=== PATIENT | male | born 1985 | race Caucasian/White ===

== ENCOUNTER → 2018-08-04 12:04 | Outpatient (CLI) | payer SELFPAY ==
[2018-08-04 12:14] VITALS: BP 108/67; PULSE 60; RESP 16; TEMP 36.7; O2SAT 97; BMI 29.7
--- NOTE | 2018-08-04 12:47 | HTC.HP3 ---
Problem List (1) Hemophilia B in male Status: Chronic Subjective Date of Service:: 08/04/18 Chief Complaint: F/U for Hemophilia. History of Present Illness: 33y.o.man with Hemophilia B, comes in for follow up. Had Factor replacement for wisdom tooth extraction. Health History: Past Medical History Past Medical History: Bleeding disorder Family History Paternal Past Medical History: Unknown Maternal Past Medical History: Unknown Past Medical History (Last Updated 08/04/18 @ 12:12 by Tatianna Stanton) Hemophilia (Acute) Past Surgical History (Last Reviewed 08/04/18 @ 12:13 by Tatianna Stanton) No history of previous surgery (Acute) Family History (Last Updated 08/04/18 @ 12:13 by Tatianna Stanton) Grandfather Cancer Parkinson disease Grandmother Cancer Brother Hemobilia Allergies/Adverse Reactions: Allergy/AdvReac Type Severity Reaction Status Date / Time aspirin AdvReac Severe BLEEDING Verified 08/04/18 12:14 Risk Factors Social History Smoking Status Former smoker Tobacco Risk Data: Tobacco Risk Smoking Status Former smoker Type of tobacco: Smokeless tobacco usage: Items/Day: Year started: Years used: Counseled to quit/cut down: Reason for no counseling performed: Reason for no pharmacotherapy: Tobacco use comments: Passive smoke exposure: Substance Risk Drug use: No Caffeine use [drinks/day]: Alcohol use: Type of alcohol: Drinks per day: Has patient felt the need to cut down: Has the patient been annoyed by complaints: Has the patient felt guilty about drinking: 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: Comments: Review of Systems Constitutional:: Denies: Fever, Sweats, Weight loss, Appetite change, Chills Cardiovascular:: Denies: Chest pain, Palpitations, Dyspnea on exertion, Orthopnea, PND, Shortness of breath Respiratory: Denies: Cough, Hemoptysis, Shortness of Breath, Wheezing Gastrointestinal:: Denies: Abdominal pain, Nausea, Vomiting, Diarrhea, Constipation, Hematochezia Genitourinary: Denies: Dysuria, Hematuria, 15, Flank pain Musculoskeletal:: Denies: Back pain, Myalgia, Arthralgia Skin: Denies: Rash, Skin Changes, Wounds Neurological:: Denies: Headache, Dizziness, Visual changes, Tinnitus, Hearing loss Psychiatric: Denies: Anxiety, Depression, Homicidal Ideations, Suicidal Ideations Vital Signs Height 5 ft 8 in Weight: 88.541 kg Weight in Pounds 195.2 lbs Pulse Ox 97 Temperature 98.1 F Pulse Rate 60 Respiratory Rate 16 Blood Pressure 108/67 Blood Pressure Position Sitting - Physical Exam General: Alert, Oriented x3, No apparent distress HEENT: Atraumatic, PERRLA, EOMI, Normocephalic Oropharynx:: Dry mucosa Neck:: Supple, Trachea midline. Negative for: JVD, bilateral Cardiac:: Regular rate, Regular rhythm, Normal S1, Normal S2. Negative for: Murmur Lungs: Clear to auscultation, Excusion symmetrical. Negative for: Rhonchi, Wheezes Abdomen:: Bowel sounds x 4, Soft, Non-tender, Non-distended. Negative for: Hepatosplenomegaly Extremities:: Negative for: Cyanosis, Edema Neurological: Neuro grossly intact Skin:: Negative for: Lesions, Rash, Petechiae, Ecchymosis Psychiatric:: Appropriate affect, Euthymic Lymphatics:: Negative for: Cervical lymphadenopathy, Supraclavicular lymphadenopathy, Axillary lymphadenopathy Therapy ROM Screening - Subjective Subjective:: Pt states he is doing well- has left shoulder pain with lifting - states not all the time- states minimal - - Objective Right shoulder flex:: 155 Left shoulder flex:: 160 Right shoulder extension:: 55 Left shoulder extension:: 60 Right elbox flex/ext:: 140/0 Left elbox flex/ext:: 140/0 Right elbow circumference:: 29cm Left elbow circumference:: 29cm Right forearm sup/pron:: 55 Left forearm sup/pron:: 60 Right knee flexion:: 115 Left knee flexion:: 120 Right knee circumference:: 34cm Left knee circumference:: 34cm Right ankle dorsiflexion:: 20 Left ankle dorsiflexion:: 20 Right ankle Plan-flex:: 45 Left ankle Plan-flex:: 45 Right ankle circumference:: NT boots on Left ankle circumference:: NT boots on Right hip flexion:: 90 Left hip flexion:: 90 Right hip extension:: 20 Left hip extension:: 20 - Assessment Assessment:: Therapist gave pt info on ice for left shoulder- pt tested negative for RT inj- but question a tendonitis. Assessment and Plan Hemophilia B, clinically stable. Plan is to continue expectant management with factor replacement as needed. RTC 1 yr. Primary Care Provider: Cuauhtemoc Burns DO Referring Provider:
== END ==
PROVIDERS: Family Provider Family Medicine; PCP Family Medicine; Visit Provider Internal Medicine Medical Oncology
DX: D67 Hereditary factor IX deficiency (principal)

== ENCOUNTER 2021-03-25 10:31 | Day surgery (SDC) | payer SELFPAY, OTHER ==
[2021-03-25 11:22] VITALS: BP 111/78; PULSE 63; RESP 16; TEMP 36.6; O2SAT 98; BMI 30.8
[2021-03-25] MEDS: Lactated Ringers 1,000 ML 15 ML IV (11:27)
[2021-03-25] MEDS: Cefazolin 2 GM in 0.9% Normal Saline 100 ML IV (13:32)
[2021-03-25] MEDS: Bupivacaine Mpf 0.5% 30 ML VIAL (13:49)
--- NOTE | 2021-03-25 14:20 | PCM.HP.STD ---
HPI - General HPI Narrative TED HORAN, is a 36 M who presents for a circumcision, he has hemophilia and is giving himself factors per his hematologis instructions. PFSH Medical History (Updated 03/25/21 @ 14:[address] Adin Welch MD) Former smoker Gastric reflux Hemophilia History of irregular heartbeat Hx of blood diseases Home Medications omega-3 fatty acids [Fish Oil] 1,000 mg PO DAILY 03/17/21 [History Last Taken Unknown] coagulation factor IX (recomb) [BeneFIX] IV 03/25/21 [History Last Taken Unknown] oxycodone-acetaminophen 1 tab PO Q6H PRN 7 Days #10 tab 03/25/21 [Rx Last Taken Unknown] Allergy/AdvReac Type Severity Reaction Status Date / Time aspirin AdvReac Severe BLEEDING Verified 03/25/21 11:21 Family History (Updated 08/04/18 @ 12:13 by Tatianna Stanton) Grandfather Cancer Parkinson disease Grandmother Cancer Brother Hemobilia Surgical History (Updated 08/04/18 @ 12:[address] Juan Zaidi MD) No history of previous surgery Social History Smoking Status: Former smoker Vital Signs Vital Signs Vital Signs: 03/25/21 11:22 Temperature 97.8 F Temperature Source Temporal Pulse Rate 63 Respiratory Rate 16 Respiratory Pattern Normal Blood Pressure 111/78 Blood Pressure Mean 89 Blood Pressure Source Monitor Blood Pressure Position Semi-Fowlers Blood Pressure Location Left Arm Pulse Ox 98 Oxygen Delivery Method Room Air Weight Weight: 92 kg Body Mass Index (BMI) 30.8 Results Lab / Micro Data Micro: Microbiology 03/25/21 11:04 Interface Orders SARS-CoV-2 Antigen (Rapid) - Final
--- NOTE | 2021-03-25 14:22 | PCM.DC ---
Discharge Instructions Diet Discharge Diet: No restrictions Activity Discharge Activity: Return to Normal Activity and May Not Drive (while taking narcotic pain medications.) Dressing / Incision Call your doctor if you observe: Fever of 101 or Higher Follow Up Care Please Follow Up With: Adin Welch MD When: Call [phone] for an appointment Test Results: Test results from this visit will be discussed in further detail at your follow-up appointment, if applicable. Discharge Plan Admission Primary Reason for Your Visit: circumcision Attending Provider: Adin Welch Primary Care Provider: Cuauhtemoc Burns Instructions Patient Instructions: Adult Circumcision, Care After Circumcision Discharge Orders/Prescriptions Prescriptions: New oxycodone-acetaminophen 5-325 mg tablet 1 tab PO Q6H PRN (Reason: pain) 7 Days Qty: 10 RF: 0 No Action Fish Oil Capsule 1,000 mg PO DAILY RF: 0 BeneFIX 1,000 unit Recon Soln IV RF: 0 Referrals / Follow Up: Adin Welch MD [STAFF PHYSICIAN] - Cuauhtemoc Burns DO [Primary Care Provider] - Disposition Disposition (needs filled in before D/C Order can be placed): Home, Self Care
--- NOTE | 2021-03-25 14:23 | PCM.OPRPT ---
Report of Operation Date of Procedure: 03/25/21 Pre-Operative Diagnosis: phimosis Post-Operative Diagnosis: same Surgery/Procedure Performed:: circumcision Description of Surgical Findings:: Patient presented to the preoperative area and we plan to proceed with a circumcision. We discussed how the procedure is done and we discussed the risks of the procedure including the risk of scar tissue formation, poor healing, bleeding, infection, urethral meatal stenosis, chronic balanitis and swelling, and poor cosmetic outcome. No guarantees were given to the patient as to the results of the procedure we discussed was involved with the procedure and how it would be done. He was given instructions on postoperative care. After full discussion with the patient all his questions were addressed organ to proceed with a circumcision. Patient was taken back to the operating room, a timeout procedure was performed and he was transferred to the table. He then underwent general anesthesia by the anesthesia team. The penis and testicles were shaved prepped and draped in usual sterile fashion. I first inspected the penis and marked out my incision site circumferentially below the foreskin on the penile shaft making sure that there was plenty of skin for the reconstruction. I then bivalved the foreskin open and then incised the foreskin below the perla of the glans penis circumferentially. I then used electrocautery to dissect the foreskin off the penis. After obtaining perfect hemostasis I then performed the circumcision by reanastomosing the shaft skin to the subcoronal skin below the glans penis all the way around the penis. This was used using chromic stitches interrupted all the way around and in a few places some running stitches to bridge the gaps. Once the circumcision was completed then fluffs and dressings were placed on the penis. The patient anesthetic was reversed and he was taken back to the PACU in stable condition. Surgeon: rachana Type of Anesthesia: General Drains: none Admit VTE Documentation VTE Present on Admission: No VTE Pharm Prophylaxis ordered?: No
[2021-03-25 14:26] VITALS: BP 108/64; BP 111/78; PULSE 79; RESP 16; TEMP 36.2; O2SAT 97
[2021-03-25 14:30] VITALS: BP 111/78; BP 114/64; PULSE 75; RESP 16; O2SAT 97
[2021-03-25] MEDS: Lactated Ringers 1,000 ML 75 ML IV (14:39)
[2021-03-25 14:45] VITALS: BP 111/70; BP 111/78; PULSE 67; RESP 16; O2SAT 96
[2021-03-25 14:51] VITALS: BP 111/78; BP 115/68; PULSE 70; RESP 16; TEMP 36.4; O2SAT 97
[2021-03-25 15:39] VITALS: BP 111/78; BP 117/69; PULSE 75; RESP 16; TEMP 36.3; O2SAT 98
== END 2021-03-25 23:59 | disposition home or self-care (01) ==
LOC: SDC 10:42 → AC 10:42
PROVIDERS: PCP Family Medicine; Referring Provider Urology; Visit Provider Urology
PROC: (CPT 54161; principal; 2021-03-25 12:50)
DX: N47.1 Phimosis (principal); D66 Hereditary factor VIII deficiency; Z87.891 Personal history of nicotine dependence
CPT/HCPCS: 54161; 00920; 87426; J7120; A4216; J2405